=== PATIENT | male | born 1995 | race Caucasian/White ===

== ENCOUNTER 2020-02-25 14:40 | Emergency (ER) | payer OTHER ==
[2020-02-25] MEDS ORDERED: methylPREDNISolone Sodium Succinate 125 MG/2 ML SDV IM ONE (14:57)
[2020-02-25] MEDS ORDERED: Albuterol/Ipratropium 3.0-0.5 MG/3 ML Neb Soln NEB ONE (14:57)
--- NOTE | 2020-02-25 15:05 | EDM.PDOC ---
ED HPI GENERAL MEDICAL PROBLEM - General Stated Complaint: SMOKE INHALATION Time Seen by Provider: 02/25/20 14:45 Source of Information: Reports: Patient History Limitations: Reports: No Limitations - History of Present Illness INITIAL COMMENTS - FREE TEXT/NARRATIVE: Patient presented to the ED because of wheezing and dyspnea. He has a history of asthma and is working today exposed with some smoke which he inhaled and developed dyspnea. Yhere is no fever, chills,cough or cold symptoms. - Related Data Home Meds: Home Meds predniSONE [Prednisone] 40 mg PO DAILY #10 tablet 02/25/20 [Rx] ED ROS GENERAL - Review of Systems Review Of Systems: See Below Constitutional: Reports: No Symptoms HEENT: Reports: No Symptoms Respiratory: Reports: Shortness of Breath, Wheezing Cardiovascular: Reports: No Symptoms Endocrine: Reports: No Symptoms GI/Abdominal: Reports: No Symptoms : Reports: No Symptoms Musculoskeletal: Reports: No Symptoms Skin: Reports: No Symptoms Neurological: Reports: No Symptoms Psychiatric: Reports: No Symptoms Hematologic/Lymphatic: Reports: No Symptoms ED EXAM, GENERAL - Physical Exam Exam: See Below Exam Limited By: No Limitations General Appearance: Alert, No Apparent Distress Eye Exam: Bilateral Eye: PERRL Ears: Normal External Exam, Normal Canal Nose: Normal Inspection, Normal Mucosa Throat/Mouth: Normal Inspection, Normal Lips, Normal Teeth Head: Atraumatic, Normocephalic Neck: Normal Inspection, Supple, Non-Tender Respiratory/Chest: No Respiratory Distress, Chest Non-Tender, Wheezing Cardiovascular: Normal Peripheral Pulses, Regular Rate, Rhythm, No Edema, No Gallop GI/Abdominal: Normal Bowel Sounds, Soft, Non-Tender, No Organomegaly Back Exam: Normal Inspection, Full Range of Motion Extremities: Normal Inspection, Normal Range of Motion Course - Vital Signs Text/Narrative:: duoneb solumedrol 125 mg IM x1 - Orders/Labs/Meds Orders: Active Orders 24 hr Category Date Time Status RT Aerosol Therapy [RC] ASDIRECTED Care 02/25/20 14:57 Active Meds: Medications Discontinued Medications Generic Name Dose Route Start Last Admin Trade Name Freq PRN Reason Stop Dose Admin Albuterol/Ipratropium 3 ml 02/25/20 14:57 Duoneb 3.0-0.5 Mg/3 Ml NEB 02/25/20 14:58 ONETIME ONE Methylprednisolone Sodium Succinate 125 mg 02/25/20 14:57 Solu-Medrol IM 02/25/20 14:58 ONETIME ONE Departure - Departure Time of Disposition: 15:45 Disposition: Home, Self-Care 01 Condition: Good Clinical Impression: Asthma exacerbation - Discharge Information Prescriptions: predniSONE [Prednisone] 40 mg PO DAILY #10 tablet Instructions: Asthma, Adult, [id number] Referrals: PCP,Not In Area [Primary Care Provider] - Additional Instructions: Please read discharge instructions on acute asthma attack Increase oral fluids Wear mask or goggles when you work on chemicals Albuterol inhaler 2puffs every 4-6 hours as needed for wheezing and difficulty of breathing Prednisone 40 mg daily starting today - My Orders Last 24 Hours: My Active Orders 02/25/20 14:57 RT Aerosol Therapy [RC] ASDIRECTED - Assessment/Plan Last 24 Hours: My Active Orders 02/25/20 14:57 RT Aerosol Therapy [RC] ASDIRECTED
== END 2020-02-25 15:35 | disposition home or self-care (01) ==
LOC: FB.ED 14:40
DX: J45.901 Unspecified asthma with (acute) exacerbation (principal)
CPT/HCPCS: 94640; 96372; 99285; J2930; 99284; J7620-GY